=== PATIENT | female | born 1965 | race Two or more races ===

== ENCOUNTER 2019-07-08 20:52 | Emergency (ER) | payer BC ==
--- NOTE | 2019-07-08 21:15 | ED Physician Chart ---
ED Chief Complaint/HPI - Patient Information Date Seen:: 07/08/19 Time Seen:: 21:10 Chief Complaint:: Left shoulder pain History of Present Illness:: 54 yo female with history of a chronic left shoulder injury at work for 4-5 years, had a fresh injury to her left shoulder while playing basketball 3 days ago. Pt had significant left shoulder pain and painful ROM. Allergies:: Allergies Allergy/AdvReac Type Severity Reaction Status Date / Time No Known Allergies Allergy Verified 07/08/19 21:05 ED Review of Systems - Review of Systems General/Constitutional: No fever Skin: No skin lesions Head: No headache Eyes: No pain ENT: No nasal drainage Neck: No neck pain Cardio Vascular: No chest pain Pulmonary: No SOB GI: No nausea, No vomiting Musculoskeletal: Bone or joint pain Psychiatric: No prior psych history Neurological: No focal symptoms ED Past Medical History - Past Medical History Past Medical History: HTN, Dyslipidemia Social History: Non Smoker, No Alcohol, No Drug Use Surgical History: None Family Medical History - Family Member Mother History Unknown: Yes ED Physical Exam - Physical Examination General/Constitutional: Awake Head: Atraumatic Eyes: PERRL Skin: No ecchymosis ENMT: Nasal exam nl Neck: No nuchal rigidity Respiratory: No Wheeze/Rhonchi/Rales Cardio Vascular: RRR, No murmur, gallop, rubs, NL S1 S2 GI: No tenderness/rebounding/guarding Other Extremities comments:: Anterior left shoulder tenderness, painful flexion of left elbow joint Neuro/Psych: No focal deficits ED Labs/Radiology/EKG Results - Radiology Results Results: Left shoulder X ray: no dislocation or fracture. ED Assessment - Assessment General Assessment: Left shoulder pain due to acute on chronic soft tissue injury Assessment/Comments:: Left shoulder X ray Toradol 30 mg IM x 1 ED Septic Shock - . Is Septic Shock (SBP<90, OR Lactate>4 mmol\L) present?: No ED Reassessment (Disposition) - Reassessment Reassessment Condition:: Improved - Aftercare/Follow up Instructions Notes:: Follow up PCP for left shoulder MRI and possible orthopedic referral and physical therapy. - Patient Disposition Discharge/Transfer:: Home
--- NOTE | 2019-07-09 08:50 | Diagnostic Imaging Report ---
Left shoulder (2 views) HISTORY: Pain Hypertrophic degenerative changes noted about the acromioclavicular joint. No acute abnormalities. No fractures. No dislocation. IMPRESSION: 1. No acute abnormalities 2. 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
== END 2019-07-08 22:27 | disposition home or self-care (01) ==
LOC: ER 20:52
DX: S49.92XA Unspecified injury of left shoulder and upper arm, initial encounter (principal); M25.512 Pain in left shoulder; G89.29 Other chronic pain; I10 Essential (primary) hypertension; E78.5 Hyperlipidemia, unspecified; X58.XXXA Exposure to other specified factors, initial encounter; Y93.67 Activity, basketball; Y92.310 Basketball court as the place of occurrence of the external cause; Y99.8 Other external cause status
CPT/HCPCS: 99283; 96372; 73030; J1885; Z7502